=== PATIENT | female | born 1995 | race African-American/Black ===

== ENCOUNTER 2017-01-26 11:24 | Emergency (ER) | payer MEDICAID ==
[2017-01-26 11:29] VITALS: BP 112/73
[2017-01-26] MEDS ORDERED: LIDOCAINE 2% VISCOUS SOLN 20 ML UDCUP PO ONE (11:51)
[2017-01-26] MEDS ORDERED: ONDANSETRON 4 MG TAB.RAPDIS PO ONE (11:52)
[2017-01-26] MEDS ORDERED: PENICILLIN V POTASSIUM 500 MG TABLET PO ONE (11:52)
[2017-01-26] MEDS ORDERED: OXYCODONE-ACETAMINOPHEN 5-325 MG TABLET PO ONE (11:52)
--- NOTE | 2017-01-26 11:55 | ER Document Report ---
ED Oral Problem - General Chief Complaint: Toothache Stated Complaint: TOOTHACHE Time Seen by Provider: 01/26/17 11:44 TRAVEL OUTSIDE OF THE U.S. IN LAST 30 DAYS: No - HPI Patient complains to provider of: Toothache - left lower jaw Onset: Other - friday Quality of pain: Achy, Throbbing Severity: Moderate Context: Fractured tooth - < 6 months ago Associated symptoms: None Relieved by: Nothing Similar symptoms previously: No Recently seen / treated by doctor/dentist: No - Related Data Allergies/Adverse Reactions: No Known Allergies Allergy (Verified 04/04/16 17:30) Past Medical History - Social History Smoking Status: Current Every Day Smoker Family History: Reviewed & Not Pertinent Renal/ Medical History: Denies: Hx Peritoneal Dialysis - Immunizations Hx Diphtheria, Pertussis, Tetanus Vaccination: Yes Review of Systems - Review of Systems Constitutional: No symptoms reported EENT: See HPI -: Yes All other systems reviewed and negative Physical Exam - Vital signs Vitals: Temp Pulse Resp BP Pulse Ox 98.6 F 98 16 112/73 96 01/26/17 11:26 01/26/17 11:26 01/26/17 11:26 01/26/17 11:26 01/26/17 11:26 - Notes Notes: PHYSICAL EXAM GENERAL: Alert, interacts well. HEAD: Normocephalic, atraumatic. EYES: Pupils equal, round, and reactive to light. Extraocular movements intact. ENT: Fractured #17 without any evidence of abscess. Oral mucosa moist, tongue midline. Uvula midline. Airway patent. No evidence of tonsillar enlargement, peritonsillar abscess, retropharyngeal abscess. NECK: Full range of motion. Supple. Trachea midline. LUNGS: Clear to auscultation bilaterally, no wheezes, rales, or rhonchi. No respiratory distress. HEART: Regular rate and rhythm. No murmurs, gallops, or rubs. NEUROLOGICAL: Alert and oriented x4. Normal speech. Course - Re-evaluation Re-evalutation: 01/26/17 12:21 Presentation is most consistent with likely an infected tooth. Airway is patent. Vitals within normal limits. Patient is able swallow without any difficulty. There is no significant facial swelling. Patient will be started on antibiotics and a limited number of pain medications. I've instructed to follow-up with dentistry as earliest ability for definitive management. Return precautions and follow-up recommendations have been discussed at length. - Vital Signs Vital signs: Temp Pulse Resp BP Pulse Ox 98.6 F 99 16 112/73 97 01/26/17 11:27 01/26/17 11:27 01/26/17 11:27 01/26/17 11:27 01/26/17 11:27 Discharge - Discharge Clinical Impression: Toothache Condition: Good Disposition: HOME, SELF-CARE Additional Instructions: TOOTHACHE: Your pain is due to dental decay. The tooth must be repaired in order for you to feel better. You will, therefore, be referred to a dentist. We do not have dentists on the staff at [facility]. Severe swelling or drainage around a tooth usually means a dental abscess. This also requires evaluation and treatment by the dentist, but antibiotics may be prescribed while awaiting dental treatment. You should be rechecked immediately if you develop major swelling of the face, increasing pain, a lump in the jaw or gums, headache, difficulty swallowing, or fever. PENICILLIN V K: You have been given a prescription for Penicillin VK. Your physician has determined that this is the best antibiotic for your condition. Pen VK can be taken with meals, however more of the antibiotic gets into the bloodstream if it's taken on an empty stomach. Penicillin usually has no side effects. However, allergy to penicillins is common. If you have had an allergic reaction to any drug of the penicillin family, you should never take any other penicillin. Notify your doctor at once if you develop hives, itching, swelling, faintness, or shortness of breath. FOLLOW-UP CARE: You have been referred for follow-up care to the dentists listed below. Call the dentists office for an appointment as you were instructed or within the next two days. If you experience worsening or a significant change in your symptoms, notify the physician immediately or return to the Emergency Department at any time for re-evaluation. [facility] [address] [place], [place] Friday mornings, by appointment [facility] [address] [place] [address] [facility] [address] [facility] [address] [facility] [place] [facility] [address] [facility] [place] [email or web address] [facility] [address] [place] [address] Friday- 8:00am to 5:00 pm Will see patients from other [facility]. Charges based on income and family size and accepts Medicare, Medicaid, and Insurances Will pull molars [facility] [id number] Hours of Operation 8:00 am - 4:30 pm weekdays The following dental offices accept Medicaid: [facility] Dr. Hsu Dr. Sanz Dr. Sanchez Dr. Cristina Shant Rangel, [place], and [place] oral surgery Dr. Torrez ([place]) Dr. Reyna ([place]) [facility] Drs. Mason and River ([place]) Dr. Mcgrath ([place]) [facility] Dr. Mcfarland ([place]) Drs. Packer and ([place]) Medicaid Care Line Prescriptions: Penicillin V Potassium 500 mg PO BID 7 Days Referrals: CHESTER FOSTER, [Primary Care Provider] - Follow up as needed
== END 2017-01-26 12:08 | disposition home or self-care (01) ==
LOC: ER 11:24
DX: K08.89 Other specified disorders of teeth and supporting structures (principal); F17.200 Nicotine dependence, unspecified, uncomplicated
CPT/HCPCS: 99282; S0119; J3490 ×2

== ENCOUNTER 2017-02-23 15:40 | Emergency (ER) | payer MEDICAID ==
[2017-02-23 15:46] VITALS: BP 109/66
--- NOTE | 2017-02-23 16:18 | ER Document Report ---
ED Oral Problem - General Chief Complaint: Toothache Stated Complaint: TOOTHACHE Time Seen by Provider: 02/23/17 16:10 Mode of Arrival: Ambulatory Information source: Patient Notes: Left lower tooth pain for the past 2 days. Patient denies fever. Patient does have a history of dental caries, states that it is acting up and she has been trying to get into see a dentist. TRAVEL OUTSIDE OF THE U.S. IN LAST 30 DAYS: No - HPI Patient complains to provider of: Toothache Onset: Last week Onset: Gradual Quality of pain: Dull Severity: Moderate Pain Level: 4 Context: Fractured tooth Sore throat: Moderate Associated symptoms: Toothache. denies: Chills, Fever Worsened by: Heat Relieved by: Nothing Similar symptoms previously: Yes Recently seen / treated by doctor/dentist: No - Related Data Allergies/Adverse Reactions: No Known Allergies Allergy (Verified 02/23/17 15:43) Past Medical History - General Information source: Patient - Social History Smoking Status: Never Smoker Cigarette use (# per day): No Chew tobacco use (# tins/day): No Frequency of alcohol use: None Drug Abuse: None Lives with: Family Family History: Reviewed & Not Pertinent Patient has suicidal ideation: No Patient has homicidal ideation: No - Medical History Medical History: Negative Renal/ Medical History: Denies: Hx Peritoneal Dialysis - Immunizations Hx Diphtheria, Pertussis, Tetanus Vaccination: Yes Review of Systems - Review of Systems Constitutional: denies: Chills, Fever EENT: See HPI Cardiovascular: No symptoms reported Respiratory: No symptoms reported Gastrointestinal: No symptoms reported Genitourinary: No symptoms reported Female Genitourinary: No symptoms reported Musculoskeletal: No symptoms reported Skin: No symptoms reported Hematologic/Lymphatic: No symptoms reported Neurological/Psychological: No symptoms reported Physical Exam - Vital signs Vitals: Temp Pulse Resp BP Pulse Ox 98.8 F 53 L 16 109/66 99 02/23/17 15:45 02/23/17 15:45 02/23/17 15:45 02/23/17 15:45 02/23/17 15:45 Notes: Oral cavity: Patient does have a fractured tooth left lower molar with tenderness along the buccal side at the base of the tooth. There is a lot of tenderness. It does look infected. Oral cavity is otherwise clear. Course - Vital Signs Vital signs: Temp Pulse Resp BP Pulse Ox 98.8 F 53 L 16 109/66 99 02/23/17 15:45 02/23/17 15:45 02/23/17 15:45 02/23/17 15:45 02/23/17 15:45 Discharge - Discharge Clinical Impression: Dental caries Condition: Stable Disposition: HOME, SELF-CARE Instructions: Oral Narcotic Medication ([facility]), Penicillin V K ([facility]), Toothache ( [facility]) Additional Instructions: The list below includes dental clinics at reduced rate. Each of these clinics involve some travel. [facility] [address] [place], [place] [phone] [email or web address] [facility] [address] [place], [place] [phone] extension [phone] [facility] [address] [place] [address] [facility]/[address] [place] [address] The [facility] now has a dental clinic: I left a number on the chart. Thank you for choosing [facility] for your care. The examination and treatment you have received in the Emergency Department today has been rendered on an emergency basis only and is not intended to be a substitute for complete medical care. You should contact your follow-up physician as it is important that he or she examine you for any new or remaining problems. If given a copy of any lab tests or radiology reports, please bring them with you when you see your physician. If your problem worsens or new symptoms appear and you are unable to arrange prompt follow-up care, return to the Emergency Department. Specific signs to look out for: Worsening pain, difficulty swallowing, difficulty breathing. Any other instructions: Take the penicillin every 6 hours for the next 10 days. Take the pain medicine as prescribed. Take ibuprofen: 600 mg every 6 hours for the next few days. Rinse with Listerine twice daily. Follow-up with a dentist as discussed. The pain medicine you're taking prescribed as a narcotic. There are several important things you should know about this medicine: 1. Taking narcotics for too long can lead to physical and mental dependence. Take this medicine only if really needed and in the lowest quantity to achieve pain relief. 2. Do not drink alcohol while on this medicine. Alcohol interacts with narcotics and the combination can be dangerous. 3. Do not drive or operate machinery while on this medicine. 4. Narcotics do cause constipation, so drink plenty of fluids and daily stool softeners. Primary Care Doctor's affiliated with [facility]: If you do not have a primary care doctor or you are unable to get an apointment during that time, you can try one of the doctor's below. These are internal medicine doctor's that have admitting priveledges to the hospital ( they will see you both in the office as well as in this hospital if you are ever hospitalized here). Dr. Frandy Oh Vitale [address], [place] [address] [phone] Dr Funes Address: [address] [place] [address] , [place] [address] Dr He Address: [address] [place] [address] , [place] [address] Prescriptions: Oxycodone HCl 5 mg PO Q6HP PRN #25 tablet PRN Reason: Penicillin V Potassium [Penicillin Vk 500 mg Tablet] 500 mg PO QID #28 tablet Referrals: [facility] [Provider Group] - Follow up as needed
== END 2017-02-23 16:44 | disposition home or self-care (01) ==
LOC: ER 15:40
DX: K02.9 Dental caries, unspecified (principal)
CPT/HCPCS: 99282

== ENCOUNTER 2018-03-12 13:06 | Emergency (ER) | payer SELFPAY ==
[2018-03-12] MEDS ORDERED: TETRACAINE HCL 0.5% OPH SOLN 0.6 ML DROPERETTE OU ONE (13:16)
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
[2018-03-12] MEDS ORDERED: TETRACAINE HCL 0.5% OPH SOLN 0.6 ML DROPERETTE OD ONE (14:23)
[2018-03-12] MEDS ORDERED: AMOXICILLIN TR/POT CLAVULANATE 500-125 MG TAB PO ONE (15:16)
[2018-03-12] MEDS ORDERED: AMOXICILLIN TRIHYDRATE 500 MG CAPSULE PO ONE (15:16)
[2018-03-12 15:29] VITALS: BP 116/72
== END 2018-03-12 15:27 | disposition home or self-care (01) ==
LOC: ER 13:06
DX: H57.11 Ocular pain, right eye (principal); R22.0 Localized swelling, mass and lump, head; W22.8XXA Striking against or struck by other objects, initial encounter
CPT/HCPCS: 99283

== ENCOUNTER 2018-12-03 00:44 | Emergency (ER) | payer OTHER ==
[2018-12-03] MEDS ORDERED: ACETAMINOPHEN 325 MG TABLET PO ONE (02:56)
[2018-12-03] MEDS ORDERED: KETOROLAC TROMETHAMINE 60 MG/2 ML SDV IM ONE (02:56)
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
[2018-12-03] MEDS ORDERED: LIDOCAINE 5% (700 MG) TRANSDERMAL ADH..PATCH TP ONE (02:57)
[2018-12-03] MEDS ORDERED: KETOROLAC TROMETHAMINE INJ/PF 30 MG/1 ML SDV ONE (05:14)
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
[2018-12-03 06:33] VITALS: BP 110/67
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
== END 2018-12-03 08:03 | disposition home or self-care (01) ==
LOC: ER 00:44
DX: R52 Pain, unspecified (principal); V49.50XA Passenger injured in collision with unspecified motor vehicles in traffic accident, initial encounter; R11.0 Nausea
CPT/HCPCS: 71046; 99283

== ENCOUNTER 2019-12-25 19:45 | Emergency (ER) | payer SELFPAY ==
[2019-12-25 20:00] VITALS: BP 125/80
--- NOTE | 2019-12-25 20:15 | ER Document Report ---
HPI - HPI Patient complains to provider of: Right sided facial pain Time Seen by Provider: 12/25/19 20:05 Pain Level: 3 Context: 24-year-old female presents to the emergency room complaining of right-sided facial swelling that started 2 days ago. Worse today. Thinks it has to do with wisdom teeth that she needs to have removed. She denies any fevers. No difficulty eating or swallowing. Has been taking Motrin with some relief. Does not have a dentist. Denies any trauma or injury to her tooth. Associated Symptoms: None Exacerbated by: Denies Relieved by: Denies Similar symptoms previously: No Recently seen / treated by doctor: No - ROS Systems Reviewed and Negative: Yes All other systems reviewed and negative - CONSTITUTIONAL Constitutional: DENIES: Fever - EENT EENT: DENIES: Sore Throat, Ear Pain, Nasal Drainage-Clear - NEURO Neurology: DENIES: Headache - RESPIRATORY Respiratory: DENIES: Trouble Breathing - REPRODUCTIVE Reproductive: DENIES: : - DERM Skin Color: Normal Past Medical History - General Information source: Patient - Social History Smoking Status: Current Every Day Smoker Chew tobacco use (# tins/day): No Frequency of alcohol use: None Drug Abuse: None Family History: Reviewed & Not Pertinent Renal/ Medical History: Denies: Hx Peritoneal Dialysis Past Surgical History: Reports: Hx Abdominal Surgery - Immunizations Hx Diphtheria, Pertussis, Tetanus Vaccination: Yes Vertical Provider Document - CONSTITUTIONAL Agree With Documented VS: Yes Exam Limitations: No Limitations General Appearance: Mild Distress - INFECTION CONTROL TRAVEL OUTSIDE OF THE [place] IN LAST 30 DAYS: No - HEENT HEENT: Atraumatic, Normocephalic. negative: Pharyngeal Exudate, Pharyngeal Tenderness, Pharyngeal Erythema, Tympanic Membrane Red, Tympanic Membrane Bulging Mouth Diagram: 1 - Nonfluctuant abscess palpated to the outer aspect of the right upper posterior wisdom tooth - NECK Neck: Normal Inspection, Supple, Thyroid Normal. negative: Lymphadenopathy- Left, Lymphadenopathy-Right - RESPIRATORY Respiratory: Breath Sounds Normal, No Respiratory Distress, Chest Non-Tender - CARDIOVASCULAR Cardiovascular: Regular Rate, Regular Rhythm, No Murmur - MUSCULOSKELETAL/EXTREMETIES Musculoskeletal/Extremeties: FROM, Non-Tender - NEURO Level of Consciousness: Awake, Alert, Appropriate Motor/Sensory: No Motor Deficit, No Sensory Deficit Course - Re-evaluation Re-evalutation: 12/25/19 20:11 Reviewed diagnosis with patient. Counseled on need to take antibiotics as prescribed. Tylenol and or Motrin as needed for pain. Outpatient follow-up with a dentist as soon as possible. Avoid any nuts or seeds. Patient was given strict return to the emergency room guidelines. Return for any new or worsening symptoms. All questions were answered. Patient verbalized understanding and agrees with plan of care. - Vital Signs Vital signs: Temp Pulse Resp BP Pulse Ox 99.3 F 85 16 125/80 97 12/25/19 19:59 12/25/19 19:59 12/25/19 19:59 12/25/19 19:59 12/25/19 19:59 Discharge - Discharge Clinical Impression: Pain, dental, Dental abscess Condition: Stable Disposition: HOME, SELF-CARE Instructions: Penicillin V K (OM), Toothache (OM), Dental Infection or Abscess (OM) Additional Instructions: Avoid any nuts or seeds. Take Tylenol and or Motrin as needed for pain. Antibiotics as prescribed. Return for any new or worsening symptoms. Prescriptions: Penicillin V Potassium [Penicillin Vk 500 mg Tablet] 500 mg PO QID #40 tablet Referrals: [facility] [Provider Group] - Follow up as needed
== END 2019-12-25 20:39 | disposition home or self-care (01) ==
LOC: ER 19:45
DX: K04.7 Periapical abscess without sinus (principal); F17.200 Nicotine dependence, unspecified, uncomplicated
CPT/HCPCS: 99282

== ENCOUNTER 2020-04-19 18:22 | Emergency (ER) | payer SELFPAY ==
[2020-04-19 19:08] VITALS: BP 135/73
[2020-04-19] MEDS ORDERED: LIDOCAINE 1% INJ-PF (10 MG/ML) 30 ML SDV INJ ONE (19:19)
[2020-04-19] MEDS ORDERED: BUPIVACAINE HCL 0.5 % INJ/PF 30 ML SDV INJ ONE (19:19)
--- NOTE | 2020-04-19 19:21 | ER Document Report ---
ED General - General Chief Complaint: Abscess Stated Complaint: SWOLLEN/SORE THROAT Time Seen by Provider: 04/19/20 18:53 Primary Care Provider: [facility] [Provider Group] - Follow up in 1 week Notes: Patient is a 25-year-old female who presents to the emergency department with a chief complaint of right-sided mouth pain. Patient states that she has had problems with her wisdom teeth. Patient states that she had leftover penicillin from when she was here last time. Patient states that she only took 5 days worth of her antibiotics. Patient was prescribed 10 days worth of antibiotics. Patient has not followed up with the dentist. Patient states that there is no purulent drainage, but has a sore throat from the drainage. Denies any cough. TRAVEL OUTSIDE OF THE [place] IN LAST 30 DAYS: No - Related Data Allergies/Adverse Reactions: No Known Allergies Allergy (Verified 12/03/18 00:48) Past Medical History - Social History Smoking Status: Current Some Day Smoker Drug Abuse: Marijuana Family History: Reviewed & Not Pertinent Patient has homicidal ideation: No Renal/ Medical History: Denies: Hx Peritoneal Dialysis Past Surgical History: Reports: Hx Abdominal Surgery - Immunizations Hx Diphtheria, Pertussis, Tetanus Vaccination: Yes Review of Systems - Review of Systems Notes: REVIEW OF SYSTEMS: CONSTITUTIONAL : Denies recent illness. Denies recent unintentional weight loss. Denies fever, chills, or sweats. EENT: Denies eye, ear, discharge, or symptoms. Denies nasal or sinus congestion. See HPI. CARDIOVASCULAR: Denies chest pain. RESPIRATORY: Denies shortness of breath, cough, congestion, difficulty breathing, or wheezing. GASTROINTESTINAL: Denies nausea, vomiting, and diarrhea. Denies abdominal pain. Denies constipation. GENITOURINARY: Denies difficulty urinating, burning, blood in urine, urgency or frequency. MUSCULOSKELETAL: Denies neck and back pain. Denies joint pain or swelling. SKIN: Denies rash, itchiness, or lesions HEMATOLOGIC : Denies easy bruising or bleeding. LYMPHATIC: Denies swollen, painful, enlarged glands. NEUROLOGICAL: Denies no numbness or tingling denies weakness. Denies headache. Denies altered mental status. Denies alteration in speech. PSYCHIATRIC: Denies stress, anxiety, alteration in sleep patterns, or depression. All other systems reviewed and negative. Physical Exam - Vital signs Vitals: Temp Pulse Resp BP Pulse Ox 99.2 F 99 20 135/73 H 95 04/19/20 19:07 04/19/20 19:07 04/19/20 19:07 04/19/20 19:07 04/19/20 19:07 - Notes Notes: PHYSICAL EXAMINATION: GENERAL: Appears well, healthy, well-nourished, no acute distress. HEAD: Normocephalic, atraumatic. EYES: PERRL, conjunctiva normal, all extraocular movements intact, sclera nonicteric ENT: Moist mucous membranes. Fluctuance noted to right upper, medial side of gums. NECK: Supple, no noticeable swelling, redness, rash. Normal range of motion. LUNGS: Equal breath sounds bilaterally and clear to auscultation. No wheezes rales or rhonchi. CARDIOVASCULAR: S1-S2, regular rate, regular rhythm. Radial pulses 2+, normal. ABDOMEN: Normoactive bowel sounds. Soft, nontender, no guarding, no rebound tenderness, and no masses palpated. EXTREMITIES: Normal strength and range of motion, no pitting or edema. No cyanosis. NEUROLOGICAL: Moves all extremities upon command. Strength 5/5 in all extremities. PSYCH: Normal mood, normal affect. SKIN: Warm, dry. No rash, lesions, ulcerations noted. Normal skin turgor. Course - Re-evaluation Re-evalutation: 04/19/20 20:13 Differential diagnosis includes but normal limited to: Dental abscess, dental caries. Based on patient's physical exam and history, this is an abscess. It was drained in the ER. There is no surrounding cellulitis. I do not believe the patient has underlying necrotizing fasciitis. Patient will be started on antibiotics. - Vital Signs Vital signs: Temp Pulse Resp BP Pulse Ox 99.2 F 99 20 135/73 H 95 04/19/20 19:07 04/19/20 19:07 04/19/20 19:07 04/19/20 19:07 04/19/20 19:07 Procedures - Incision and Drainage Right upper mouth Type: Simple Anesthetic type: 0.5% Bupivacaine - And 1% lidocaine Blade size: 11 I&D procedure: Sterile dressing applied Incision Method: Incision made by scalpel Amount/type of drainage: Purulent and blood/5 mL Mouth/Teeth picture: 1 - Abscess Discharge - Discharge Clinical Impression: Abscess, Dental caries Condition: Stable Disposition: HOME, SELF-CARE Instructions: Post Incision and Drainage Additional Instructions: You have been seen in the emergency department for an abscess related to your infected tooth. You may take ibuprofen 600 mg and Tylenol 1000 mg every 6 hours as needed for the pain. You have also been prescribed antibiotics. Please take the antibiotics as prescribed, even if you start to feel better. If you develop a fever greater than 100.4 F, or have any symptoms that are worrisome to you, please return to the emergency department. Please follow-up with a dentist this week in regards to your visit. Please follow-up with the dentist below. Call them tomorrow make an appointment. Prescriptions: Penicillin V Potassium [Penicillin Vk 500 mg Tablet] 500 mg PO QID #40 tablet Forms: Return to Work Referrals: [facility] [Provider Group] - Follow up in 1 week
== END 2020-04-19 20:42 | disposition home or self-care (01) ==
LOC: ER 18:22
DX: K04.7 Periapical abscess without sinus (principal); F17.200 Nicotine dependence, unspecified, uncomplicated; F12.10 Cannabis abuse, uncomplicated
CPT/HCPCS: 99283; 40800; J3490 ×2